=== PATIENT | male | born 1980 | race Caucasian/White ===

== ENCOUNTER 2021-03-24 06:16 | Emergency (ER) | payer OTHER ==
[~2021-03-24] VITALS: Ht 175.3 cm; Wt 72.6 kg
[2021-03-24] MEDS ORDERED: ASPIRIN 325 MG TABLET PO ONE (06:30)
[2021-03-24] MEDS ORDERED: IV NORMAL SALINE 1000 ML BAG IV ONE (06:30)
[2021-03-24] MEDS ORDERED: NITROGLYCERIN 0.4 MG/TAB BOTTLE SL ONE ×2 (06:30→06:45)
--- NOTE | 2021-03-24 06:36 | NUR ---
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 Pt stated "he just got home from partying with some friend in which I was drinking alcohol and doing some cocaine." Pt denies chest pain, sob, vision changes, cough, fever, or other symptoms.
[2021-03-24] MEDS ORDERED: ASPIRIN 325 MG TABLET ONE (06:45)
--- NOTE | 2021-03-24 06:45 | NUR ---
Pt. declined to take the nitroglycerin and aspirin. I provided education on the medications and the potential risks to not taking them. Dr. Madera was notified, she also spoke with the patient and provided education on the medications. Pt. still refused. I will continue to monitor the patient and follow up.
[2021-03-24 06:47] VITALS: BP 138/92
--- NOTE | 2021-03-24 06:53 | NUR ---
Dr. Madera is at bedside to do mse.
--- NOTE | 2021-03-24 07:31 | NUR ---
Patient is AOx4, respiration:easy & nonlabored, pending results and disposition. Patient was verbally expressing, "Can I just go home?" MD notified.
[2021-03-24 07:32] LABS: MEAN CORPUSCULAR VOLUME 89.8 fL (73.0-96.2); PLATELET COUNT (AUTO) 286 K/uL (152-348)
--- NOTE | 2021-03-24 07:42 | NUR ---
Patient decided to stay and wait for the results.
[2021-03-24 07:46] LABS: BILIRUBIN,DIRECT 0.2 mg/dL (0.0-0.2); BILIRUBIN,TOTAL 0.7 mg/dL (0.2-1.0); CREATININE 0.8 mg/dL (0.6-1.3); POTASSIUM 3.2 mmol/L (3.5-5.1); TOTAL PROTEIN, SERUM 8.3 g/dL (6.4-8.2)
--- NOTE | 2021-03-24 08:09 | NUR ---
Patient does not wish to proceed with medical care recommended by Dr. Madera. Patient was given information related to possible complications, up to and including , which could occur as a result of leaving the hospital at this time. Patient verbalized understanding of risks involved due to leaving against medical advice. Patient signed AMA form.
[2021-03-24] MEDS ORDERED: POTASSIUM CHLORIDE 20 MEQ TAB.PRT.SR PO ONE (08:15)
--- NOTE | 2021-03-24 08:15 | NUR ---
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 is aware.
--- NOTE | 2021-03-24 08:16 | NUR ---
IV removed. Catheter intact and site benign. Pressure and 4x4 gauze applied to site. No bleeding noted. Patient discharged to home in stable condition with brisk steady. Written and verbal after care instructions given to patient. Patient verbalized understanding and compliance of instructions. Stressed follow up with his primary doctor@[email or web address] or return to ER for worsening s/s. Copies of all tests' results were also given to patient.
[2021-03-24] MEDS ORDERED: POTASSIUM CHLORIDE 20 MEQ TAB.PRT.SR ONE (08:17)
== END 2021-03-24 08:16 | disposition home or self-care (01) ==
LOC: ER 06:18
DX: R00.2 Palpitations (principal); F14.10 Cocaine abuse, uncomplicated; F17.200 Nicotine dependence, unspecified, uncomplicated
CPT/HCPCS: 36415; 70030-TC; 71045; 85025; 85730; 93005; A4663; J7030